=== PATIENT | female | born 1960 | race Caucasian/White ===

== ENCOUNTER → 2017-02-19 | Outpatient (CLI) | payer BC, OTHER ==
[~2017-02-19] MED LIST: BUPIVACAINE MPF 0.25% 10 ML VIAL. ONE; methylPREDNISolone ACETATE 40 MG/ML VIAL. ONE
== END | disposition home or self-care (01) ==
LOC: SURG 15:29
PROVIDERS: ATTEND Anesthesiology
DX: M79.1 Myalgia (principal); I10 Essential (primary) hypertension; J40 Bronchitis, not specified as acute or chronic; Z98.890 Other specified postprocedural states
CPT/HCPCS: 20553; J1030; J3490

== ENCOUNTER → 2017-03-19 | Outpatient (CLI) | payer BC ==
[~2017-03-19] MED LIST changes: +DEXAMETHASONE SOD PHOS 4 MG/ML VIAL ONE; +IOHEXOL 300 MG/ML 50 ML VIAL. ONE; +LIDOCAINE 1% PF 30 ML VIAL. ONE; -methylPREDNISolone ACETATE 40 MG/ML VIAL. ONE
== END | disposition home or self-care (01) ==
LOC: SURG 15:28
PROVIDERS: ATTEND Anesthesiology
DX: G58.0 Intercostal neuropathy (principal); I10 Essential (primary) hypertension; Z88.6 Allergy status to analgesic agent
CPT/HCPCS: 64421; J1100; J2001; J3490; Q9967

== ENCOUNTER → 2020-01-06 | Outpatient (CLI) | payer BC, OTHER ==
--- NOTE | 2020-01-07 09:03 | RAD ---
BILATERAL SCREENING MAMMOGRAM History: Routine screening. Comparison: 11/29/2014, 01/10/2016, 11/25/2018. Technique: Routine bilateral digital mammogram views were obtained. Findings: Breast Tissue Density C : The breasts are heterogeneously dense, which may obscure small masses. There are no dominant masses, suspicious microcalcifications, or architectural distortion. IMPRESSION: No mammographic evidence of malignancy. Recommend routine screening. BI-RADS category 1: Negative. The images were reviewed with computer aided detection. Patient information is entered into the reminder system with a target due date for the next screening mammogram. Mammography is the most sensitive method for finding small breast cancers, but it does not detect them all and is not a substitute for careful clinical examination. A negative mammogram does not negate a clinically suspicious finding and should not result in delay in biopsying a clinically suspicious abnormality. "Our facility is accredited by the [employer] Mammography [employer]." Electronically signed by: Judd Hansen MD (01/07/2020 9:00 AM) [id number]
== END | disposition home or self-care (01) ==
LOC: MAMMO 15:15
PROVIDERS: ATTEND Physician Assistant Medical
DX: Z12.31 Encounter for screening mammogram for malignant neoplasm of breast (principal)
CPT/HCPCS: 77067

== ENCOUNTER → 2020-04-28 | Outpatient (CLI) | payer OTHER ==
--- NOTE | 2020-04-28 17:21 | RAD ---
EXAM: Right hand, 2 views; right wrist, 2 views. HISTORY: Pain. COMPARISON: None. FINDINGS: 2 views of the right hand and wrist are obtained. There is no acute fracture, dislocation o r subluxation. There is no foreign body. IMPRESSION: No acute osseous finding. Electronically signed by: Aleah Knowles MD (04/28/2020 5:18 PM) [id number]
== END ==
LOC: PMG 14:32
PROVIDERS: ATTEND Family Medicine
DX: M25.531 Pain in right wrist (principal); M79.641 Pain in right hand
CPT/HCPCS: 73100; 73120

== ENCOUNTER → 2020-10-11 | Outpatient (CLI) | payer OTHER ==
--- NOTE | 2020-10-11 16:36 | RAD ---
XR LT TOE 2+ VIEWS History: Second digit injury, pain and swelling. Comparison: None. Technique: AP view left foot. Lateral coned-down view of the second toe Findings: Osseous mineralization is normal. No fracture or dislocaton. Mild degenerative changes at the first a nd fifth metatarsophalangeal joints as well as the interphalangeal joints. Soft tissues are unremarka ble. Impression: 1. No acute osseous abnormality of the second toe. Electronically signed by: Low Cobian MD (10/11/2020 4:33 PM) [id number]
== END ==
LOC: RAD 11:25
PROVIDERS: ATTEND Physician Assistant
DX: M19.072 Primary osteoarthritis, left ankle and foot (principal)
CPT/HCPCS: 73660

== ENCOUNTER → 2021-01-10 | Outpatient (CLI) | payer OTHER ==
--- NOTE | 2021-01-10 15:20 | RAD ---
EXAM: Bilateral screening mammogram. HISTORY: 60-year-old female presents for screening mammography. TECHNIQUE: Full-field digital craniocaudal and mediolateral oblique views of both breasts are obtaine d for evaluation. Computer aided detection was applied. COMPARISON: 01/06/2020 BREAST PARENCHYMAL DENSITY: Level C - Heterogeneously dense. FINDINGS: There is no new suspicious mass, microcalcification or region of architectural distortion. IMPRESSION: BI-RADS Category 2: Benign finding(s). RECOMMENDATION: Annual mammography is recommended. If your mammogram demonstrates that you have dense breast tissue, which could hide abnormalities, and if you have other risk factors for breast cancer that have been identified, you might benefit from s upplemental screening tests that may be suggested by your ordering physician. Dense breast tissue, i n and of itself, is a relatively common condition. This information is not provided to cause undue c oncern, but rather to raise your awareness and to promote discussion with your physician regarding th e presence of other risk factors, in addition to dense breast tissue. A report of your mammography re sults will be sent to you and your physician. You should contact your physician if you have any ques tions or concerns regarding this report. Mammography is a sensitive method for finding small breast cancers, but it does not detect them all a nd is not a substitute for careful clinical examination. A negative mammogram does not negate a clin ically suspicious finding and should not result in delay in biopsying a clinically suspicious abnorma lity. PQRS compliance statement - Patient information was entered into a reminder system with a target due date for the next mammogram. "Our facility is accredited by the [employer] Mammography [employer]." Electronically signed by: Aleah Knowles MD (01/10/2021 3:17 PM) [id number]
== END ==
LOC: MAMMO 14:38
PROVIDERS: ATTEND Physician Assistant
DX: Z12.31 Encounter for screening mammogram for malignant neoplasm of breast (principal)
CPT/HCPCS: 77067

== ENCOUNTER → 2021-02-21 | Outpatient (CLI) | payer OTHER ==
--- NOTE | 2021-02-21 15:48 | RAD ---
EXAM: Left shoulder, 3 views. HISTORY: Pain. COMPARISON: None. FINDINGS: 3 views of the left shoulder obtained. There is no fracture, dislocation or subluxation. Th ere is moderate marginal humeral head and glenoid spurring. There is mild degenerative spurring invol ving the acromial clavicular joint. There is facet arthropathy at the visualized cervical levels. IMPRESSION: 1. Moderate glenohumeral and mild and acromioclavicular joint osteoarthritis. 2. No acute osseous finding. Electronically signed by: Aleah Knowles MD (02/21/2021 3:46 PM) [id number]
== END ==
LOC: RAD 15:17
PROVIDERS: ATTEND Physician Assistant
DX: M19.012 Primary osteoarthritis, left shoulder (principal)
CPT/HCPCS: 73030

== ENCOUNTER → 2021-03-06 | Outpatient (CLI) | payer OTHER ==
--- NOTE | 2021-03-06 14:35 | RAD ---
3 views right foot HISTORY: Pain AP lateral oblique views The visualized osseous structures appear normal. IMPRESSION: No acute findings. Electronically signed by: Colton Gardiner III, MD (03/06/2021 2:33 PM) [facility]
== END ==
LOC: RAD 10:50
PROVIDERS: ATTEND Podiatrist
DX: M79.671 Pain in right foot (principal)
CPT/HCPCS: 73630

== ENCOUNTER → 2021-03-17 | Outpatient (CLI) | payer OTHER ==
--- NOTE | 2021-03-18 17:51 | RAD ---
Exam performed: X-ray thoracic spine. HISTORY: Neck and back pain, no known injury patient is unable to stand for a period of time. DATE OF SERVICE: 03/17/2021. COMPARISON: None available FINDINGS: AP, lateral and swimmer's view of the thoracic spine is obtained. Normal sagittal alignment is preser elma. The vertebral body heights are maintained. There is narrowing of several intervertebral disc spa helen with mild osteophytic spurring. There is no acute compression fracture. No prevertebral soft tiss ue swelling is seen. The craniocervical junction appears normal. IMPRESSION: Sclerotic changes and degenerative disc disease involving the thoracic spine. No acute abnormality seen. Electronically signed by: Sofia Johnson MD (03/18/2021 4:41 PM) JOSE ANTONIO
== END ==
LOC: RAD 12:32
PROVIDERS: ATTEND Family Medicine
DX: M51.34 Other intervertebral disc degeneration, thoracic region (principal); M46.04 Spinal enthesopathy, thoracic region; M54.2 Cervicalgia
CPT/HCPCS: 72072

== ENCOUNTER → 2021-04-24 | Outpatient (CLI) | payer OTHER ==
--- NOTE | 2021-04-24 09:39 | RAD ---
Exam Date: 04/24/2021 9:25 AM XR FOOT_RIGHT 3 VIEWS Indication: Reason: S/P BUNYONECTOMY / Spl. Instructions: / History: . COMPARISON: March 06, 2021 FINDINGS/ IMPRESSION: Postoperative changes are noted involving the fifth metatarsal head. No acute fracture or dislocation. Mild degenerative changes are noted. The soft tissues are within normal limits. Mild calcaneal enthesopathy is present. Electronically signed by: Joe Bower MD (04/24/2021 9:36 AM) [id number]
== END ==
LOC: RAD 09:17
PROVIDERS: ATTEND Podiatrist
DX: M19.071 Primary osteoarthritis, right ankle and foot (principal); M77.31 Calcaneal spur, right foot; Z98.890 Other specified postprocedural states
CPT/HCPCS: 73630

== ENCOUNTER → 2021-05-31 | Outpatient (CLI) | payer OTHER ==
--- NOTE | 2021-05-31 18:05 | RAD ---
EXAM: XR FOOT_RIGHT 3 VIEWS 05/31/2021 3:45 PM CLINICAL INDICATION: Foot pain post surgery COMPARISON: Right foot radiograph 04/24/2021 TECHNIQUE: 3 views of the right foot FINDINGS: Surgical changes of the little toe metatarsal head osteotomy. There is increased callus fo rmation along the osteotomy site. The screw is unchanged in alignment. No acute fracture. Joint space s are maintained. Mild lateral soft tissue swelling. IMPRESSION: Healing osteotomy of the little toe metatarsal. Electronically signed by: Faith Fuentes MD (05/31/2021 6:03 PM) [id number]
== END ==
LOC: RAD 15:32
PROVIDERS: ATTEND Podiatrist
DX: M79.89 Other specified soft tissue disorders (principal); L84 Corns and callosities; Z98.890 Other specified postprocedural states
CPT/HCPCS: 73630

== ENCOUNTER → 2021-08-16 | Outpatient (CLI) | payer OTHER ==
--- NOTE | 2021-08-16 14:50 | RAD ---
EXAM: Right hip, 2 views HISTORY: Pain. COMPARISON: None. FINDINGS: 2 views of the right hip are obtained. There is no fracture, dislocation or subluxation. Th ere is minimal marginal femoral head spurring. There is instrumented fusion and noninstrumented fusio n involving the lumbosacral junction. IMPRESSION: Minimal right hip osteoarthritis. Electronically signed by: Aleah Knowles MD (08/16/2021 2:48 PM) [id number]
== END ==
LOC: RAD 13:22
PROVIDERS: ATTEND Physician Assistant
DX: M16.11 Unilateral primary osteoarthritis, right hip (principal)
CPT/HCPCS: 73502

== ENCOUNTER → 2021-09-05 | Outpatient (CLI) | payer OTHER ==
[~2021-09-05] MED LIST changes: -BUPIVACAINE MPF 0.25% 10 ML VIAL. ONE; -DEXAMETHASONE SOD PHOS 4 MG/ML VIAL ONE; -IOHEXOL 300 MG/ML 50 ML VIAL. ONE; -LIDOCAINE 1% PF 30 ML VIAL. ONE; +REGADENOSON 0.4 MG/5 ML DISP.SYRIN. IV ONE
--- NOTE | 2021-09-05 12:03 | CARD ---
MR#: [id number] Date of Study: 09/05/2021 Ordering Physician: SHAISTA MARQUEZ, Referring Physician: SHAISTA MARQUEZ, Tech: Colton Tabor [facility] AP[facility] RE[facility] EXAM: Two-dimensional and M-mode echocardiogram with Doppler and color Doppler. Other Information Quality : FairHR: 69bpm Rhythm : NSRTechnically limited study due to body habitus. INDICATION Chest Pain RISK FACTORS Hypertension Obesity Hyperlipidemia Diabetes 2D DIMENSIONS Left Atrium(2D)3.6 (1.6-4.0cm)IVSd1.2 (0.7-1.1cm) Aortic Root(2D)2.7 (2.0-3.7cm)LVDd4.1 (3.9-5.9cm) LVOT Diameter1.8 (1.8-2.4cm)PWd1.2 (0.7-1.1cm) LA Gocsdg76 (18-58mL)LVDs2.2 (2.5-4.0cm) FS (%) 46.9 %SV58.7 ml LVEF(%)78.7 (>50%) Aortic Valve AoV Peak Eliseo.135.1cm/sAoV VTI26.0cm AO Peak GR.7.3mmHgLVOT Peak Eliseo.84.8cm/s LVOT VTI 18.12cmAO Mean GR.4mmHg BOBBI (VMAX)1.89bs5RXX (VTI)1.76cm2 Mitral Valve MV E Okywhnil02.8cm/sMV DECEL [id number] MV A Xcqwllgo13.7cm/sE/A Ratio0.8 Pulmonary Valve PV Peak Xqxwhogz59.2cm/sPV Peak Grad.3mmHg Pulmonary Vein S1 Kvduodmg51.2cm/sD2 Exgutrpr59.8cm/s LEFT VENTRICLE The left ventricle is normal size. There is mild concentric left ventricular hypertrophy. The left ve ntricular systolic function is normal and the ejection fraction is within normal range. EF 55% There is grossly normal LV segmental wall motion. Transmitral Doppler flow pattern is Grade I-abnormal rela xation pattern. No left ventricle thrombus noted on this study. There is no ventricular septal defect visualized. There is no left ventricular aneurysm. There is no mass noted in the left ventricle. RIGHT VENTRICLE The right ventricle is normal size. There is normal right ventricular wall thickness. The right ventr icular systolic function is normal. ATRIA The left atrium size is normal. The right atrium size is normal. The interatrial septum is intact wit h no evidence for an atrial septal defect or patent foramen ovale as noted on 2-D or Doppler imaging. AORTIC VALVE The aortic valve is calcified but opens well. The aortic valve is trileaflet. Doppler and Color Flow revealed no significant aortic regurgitation. There is no significant aortic valvular stenosis. There is no aortic valvular vegetation. MITRAL VALVE The mitral valve is normal in structure and function. There is no evidence of mitral valve prolapse. There is no mitral valve stenosis. Doppler and Color Flow revealed no mitral valve regurgitation note d. TRICUSPID VALVE The tricuspid valve is normal in structure and function. Doppler and Color Flow revealed no tricuspid valve regurgitation noted. There is no tricuspid valve prolapse or vegetation. There is no tricuspid valve stenosis. PULMONIC VALVE Doppler and Color Flow revealed no pulmonic valvular regurgitation. There is no pulmonic valvular ehsan nosis. GREAT VESSELS The aortic root is normal in size. The ascending aorta is normal in size. The IVC is normal in size a nd collapses >50% with inspiration. PERICARDIAL EFFUSION There is no pleural effusion. There is no evidence of significant pericardial effusion. Critical Notification Critical Value: No <Conclusion> The left ventricular systolic function is normal and the ejection fraction is within normal range. EF 55% There is grossly normal LV segmental wall motion. Signed by : Shaista Marquez, Electronically Approved : 09/05/2021 12:02:41
--- NOTE | 2021-09-05 12:11 | RAD ---
MR#: [id number] Date of Study: 09/05/2021 Ordering Physician: SHAISTA MARQUEZ, Referring Physician: MONSE HAQUE Tech: RT Jb (R) (N) APPROVED REPORT Test Type: Pharmacological Stress Nurse/Tech: Ibeth/Oxana Test Indications: Chest Pain Cardiac History: none Medications: See EHR Medical History: See EHR Resting Heart Rate: 53 bpm Resting Blood Pressure: 139/49mmHg Pretest Chest Pain: No chest pain Pharm. Details Pharmacologic stress testing was performed using 0.4mg per 5ml of regadenoson given intravenously ove r 7-10 seconds. Stress Symptoms Dyspnea POST EXERCISE Reason for Termination: Infusion complete Max HR: 109 bpm Max Blood Pressure: 146/65mmHg Blood Pressure response to exercise: Normal blood pressure response during stress. Heart Rate response to exercise: Normal (Increased) Chest Pain: No. Arrhythmia: No. ST Change: No. INTERPRETATION Stress EKG Conclusion: No evidence of stress induced EKG changes Imaging Protocol IMAGE PROTOCOL: Rest Tc-99m/stress Tc-99m 1 day Rest: Stress: Viability: Radiopharm.Tc99m [id number] Sestamibi Qfnw80iRk 33mCi Duration 15min. 15min. Img Date 09/05/2021 09/05/2021 Inj-Img [id number]. 60min. Rest Admin Site:IV - Left AntecubitalAdministrator: RT Jb (R)(N) Stress Admin Site: IV - Left AntecubitalAdministrator: RT Jb (R)(N) STRESS DATA End Diast. Vol.44.0mlAv. Heart Rate75.0bpm End Syst. Vol.9.0mlCO Index BSA0.0L/min Myocardial Mass87.0gEject. Zxhogiac03.0% Stress Rates Pk. Fill Rate0.67EDV/secLVtime Pk. Fill 152.82msec Pk. Empty Rate5.45ESV/secLVtime Pk. Wlkpz481.93msec 1/3 Pk. Fill0.87EDV/sec Stress Scores Regional WT1.00Summed WT8.00 Regional WM0.00Summed WM0.00 The rest and stress images show normal perfusion, normal contraction and thickening. LV Perf. Quant 17 Seg. SSS0.00 17 Seg. SRS0.00 17 Seg. SDS0.00 Stress Defect Extent (% LAD)0.00Rest Defect Extent (% LAD)0.00Rev. Defect Extent (% LAD)0.00 Stress Defect Extent (% LCX) 0.00Rest Defect Extent (% LCX)0.00Rev. Defect Extent (% LCX)0.00 Stress Defect Extent (% RCA)0.00Rest Defect Extent (% RCA)0.00Rev. Defect Extent (% RCA)0.00 Stress Defect Extent (% MELANIE)0.00Rest Defect Extent (% MELANIE)0.00Rev. Defect Extent (% MELANIE)0.00 Other Information Quality:Good Risk Assessment: Low Risk Conclusion 1. No evidence of EKG changes with stress testing. 2. Normal perfusion at stress/rest. 3. Low risk study. 4. EF > 60%. Signed by : Shaista Marquez, Electronically Approved : 09/05/2021 12:11:23
== END ==
LOC: NM 07:58
PROVIDERS: ATTEND Internal Medicine Cardiovascular Disease
DX: I35.8 Other nonrheumatic aortic valve disorders (principal); I51.7 Cardiomegaly
CPT/HCPCS: 78452; 93017; 93306; A9500; J2785